=== PATIENT | female | born 1955 | race Caucasian/White ===

== ENCOUNTER 2019-05-21 12:28 | Inpatient (IN) | payer BC, MEDICAID, MEDICARE, OTHER ==
[~2019-05-21] VITALS: Ht 170.2 cm; Wt 79.8 kg
--- NOTE | 2019-05-21 12:38 | NUR ---
Dr Buenrostro at the bedside for MSE.
[2019-05-21] MEDS ORDERED: LORAZEPAM 2 MG/1 ML VIAL ONE (12:50)
[2019-05-21] MEDS ORDERED: LORAZEPAM 2 MG/1 ML VIAL IM ONE (13:00)
--- NOTE | 2019-05-21 13:10 | NUR ---
Pt remaines aggressive and continue to yell and scream. 1 to 1 infrastructure security architect at the bedside.
[2019-05-21 13:15] LABS: BASOPHILS # (AUTO) 0.1 K/uL (0.0-8.0); BASOPHILS % (AUTO) 1.3 % (0.0-2.0); EOSINOPHILS # (AUTO) 0.1 K/uL (0.0-0.7); EOSINOPHILS % (AUTO) 1.9 % (0.0-7.0); HEMATOCRIT 37.3 % (31.2-41.9); HEMOGLOBIN 12.4 g/dL (10.9-14.3); LYMPHOCYTES # (AUTO) 1.8 K/uL (20.0-40.0); LYMPHOCYTES % (AUTO) 29.8 % (20.5-51.5); MEAN CORPUSCULAR HEMOGLOBIN 28.2 uug (24.7-32.8); MEAN CORPUSCULAR HGB CONC 33 g/dL (32.3-35.6); MONOCYTES # (AUTO) 0.4 K/uL (2.0-10.0); MONOCYTES % (AUTO) 6.1 % (0.0-11.0); NEUTROPHILS # (AUTO) 3.6 K/uL (1.8-8.9); NEUTROPHILS % (AUTO) 60.9 % (38.5-71.5); PLATELET COUNT (AUTO) 213 K/uL (179-408); RED BLOOD CELL COUNT(AUTO) 4.39 MIL/uL (3.63-4.92)
[2019-05-21] MEDS ORDERED: OLANZAPINE 10 MG VIAL IM ONE ×4 (13:18→18:01)
[2019-05-21 13:21] LABS: CARBON DIOXIDE 28 mmol/L (21-32); CHLORIDE 107 mmol/L (98-107); CREATININE 0.8 mg/dL (0.6-1.3); GLUCOSE 101 mg/dL (74-106); UREA NITROGEN, BLOOD 13 mg/dL (7-18)
[2019-05-21 13:27] LABS: ALANINE AMINOTRANSFERASE 22 U/L (14-59); ALKALINE PHOSPHATASE 138 U/L (50-136); ASPARTATE AMINOTRANSFERASE 15 U/L (15-37); BILIRUBIN,DIRECT 0.1 mg/dL (0.0-0.2); BILIRUBIN,TOTAL 0.4 mg/dL (0.2-1.0); TOTAL PROTEIN, SERUM 7.3 g/dL (6.4-8.2)
--- NOTE | 2019-05-21 13:31 | NUR ---
Pt's sister shun phone #[phone].
--- NOTE | 2019-05-21 13:31 | NUR ---
Left message for Pt's sister shun. Awaiting call back.
[2019-05-21 13:34] LABS: ETHANOL < 3 MG/DL (0-0)
[2019-05-21 13:50] LABS: THYROID STIMULATING HORMONE 1.677 mIU/mL (0.358-3.740)
[2019-05-21] MEDS ORDERED: IV NORMAL SALINE 500 ML BAG IV ONE (14:15)
[2019-05-21] MEDS ORDERED: IV NORMAL SALINE 1000 ML BAG IV ONE (15:15)
[2019-05-21 15:21] LABS: *BILIRUBIN,URIN NEGATIVE (NEGATIVE); *BLOOD, URINE NEGATIVE (NEGATIVE); *CLARITY,URINE CLEAR (CLEAR); *COLOR,URINE YELLOW (YELLOW); *KETONES,URINE NEGATIVE (NEGATIVE); *UROBILINOGEN,URINE 0.2 E.U./dl (NORMAL); LEUKOCYTE ESTERASE ,URINE NEGATIVE (NEGATIVE); NITRITE, URINE NEGATIVE (NEGATIVE); PH,URINE 5.5 (5.0-8.0); UGLUCOSE NEGATIVE (NEGATIVE)
--- NOTE | 2019-05-21 15:22 | NUR ---
Pt resting in bed w/ both eyes closed, easily arousable. 1 to 1 sitter at the bedside.
[2019-05-21 15:32] LABS: *AMPHETAMINE, URINE NEGATIVE (NEGATIVE); *BARBITURATE, URINE NEGATIVE (NEGATIVE); *CANNABINOID, URINE NEGATIVE (NEGATIVE); *COCCAINE, URINE NEGATIVE (NEGATIVE); *OPIATE, URINE NEGATIVE (NEGATIVE); *PHENCYCLIDINE SCREEN,URINE NEGATIVE (NEGATIVE)
--- NOTE | 2019-05-21 17:25 | NUR ---
Dr Lott(social group worker) spoke to pt's sister.
--- NOTE | 2019-05-21 17:37 | NUR ---
Flight Paramedic Consultation: 4:50pm: This SW met with the patient, who was in her assigned ED room, with a sitter. Patient was seated in a chair, receptive to meeting with this SW. Patient was brought in by paramedics and [employer] after patient was at her optometrists office earlier today and she expressed SI. [employer] and paramedics were called, and [employer] placed patient on a 5150 hold for danger to self and patient was brought to this ED. Patient is a 63 year old female. According to Dr. Buenrostro, Patient presented in the ED with altered mental status. Patient was given Zyprexa and Ativan, per Dr. Buenrostro's orders. Patient is currently awake, presents calm and less altered, able to answer questions appropriately. Patient is hard of hearing. Patient states she lives with her mother, who patient takes care of. Patient expresses concern about her mother, since mother is currently home alone. Patient provided her sister Jasmyn's phone number [phone], and asked for SW to contact patient's sister, and not patient's mother. BOZENA Bowers had left patient's sister Jasmyn a voicemail message earlier, and this SW called Jasmyn again at 5:10pm. Patient is expressing the desire to leave, however patient was told that she is on a hold at this time for evaluation. SW informed the patient that SW is waiting for a call back from patient's sister. Patient expressed understanding.
--- NOTE | 2019-05-21 17:49 | NUR ---
5:20pm: Patient's sister Jasmyn called back [phone]. This SW and Dr. Buenrostro talked to Jasmyn, per patient's verbal authorization to talk to patient's sister Jasmyn. Jasmyn thanked Dr. Buenrostro and SW for information provided, and stated that she will be taking care of their mother while patient is in the hospital. Jasmyn was informed by Dr. Buenrostro that patient will be admitted to MHU. Jasmyn expressed understanding.
--- NOTE | 2019-05-21 17:56 | NUR ---
Pt becomes more aggitated and attempted to leave the room/hospital,code ross called.
[2019-05-21 18:45] VITALS: BP 139/75
--- NOTE | 2019-05-21 18:46 | NUR ---
Pt is less agitated and cooperative at this time. Pt transfered to [facility] via [place].
[2019-05-21 20:32] VITALS: BP 131/69
[2019-05-21] MEDS ORDERED: BLOOD SUGAR DIAGNOSTIC 1 EACH STRIP VI ONE (21:45)
[2019-05-21] MEDS ORDERED: MAG HYDROX/AL HYDROX/SIMETH 30 ML LIQUID UDC PO PRN (21:45)
[2019-05-21] MEDS ORDERED: MAGNESIUM HYDROXIDE 30 ML LIQUID UDC PO PRN (21:45)
[2019-05-21] MEDS: TEMAZEPAM 7.5 MG CAPSULE PO PRN (23:39)
--- NOTE | 2019-05-22 02:12 | NUR ---
Received to care, at 1900 (pt arrived on the unit at 1845), from the emergency room, on a 72 hour hold for danger to self. According to the hold and chart, she lives with her elderly mother, and is the primary caregiver for her. She went to her eye doctor appointment, and told them that she had suicidal thoughts, and she "can't go on with life anymore". She told the crisis team that she was thinking of different ways of committing suicide, and that she was depressed and couldn't live any longer, with her disabilities. Upon arrival on the unit, she was groggy and uncooperative with admission assessment, and interview, and immediately went to sleep. (she was medicated in the emergency room twice, for agitation) when she woke up, around 2300, she was confused and disorganized. she denied ever being suicidal, stating, "i'm not suicidal, i am congregation. we are very dramatic, when we talk" she totally downplayed the earlier incident. she was cooperative with some questions, but was still altered, asking the same questions, over and over. She seemed restless, and stated she wouldn't be able tro sleep in a strange room, so she was given PRN restoril for insomnia, at 2339. As of now, she remains asleep. no distress noted. will continue to monitor closely.
[2019-05-22 07:30] VITALS: BP 115/56
[2019-05-22 07:42] LABS: BILIRUBIN,TOTAL 0.3 mg/dL (0.2-1.0); CREATININE 0.7 mg/dL (0.6-1.3); POTASSIUM 3.4 mmol/L (3.5-5.1); TOTAL PROTEIN, SERUM 6.3 g/dL (6.4-8.2)
--- NOTE | 2019-05-22 10:53 | NUR ---
Social Work Note/Initial Discharge Plan: Patient currently resides with her mother at [address] [place] [address]; ([phone]). Per pt, she would want to go back home upon discharge. railway track worker will work with the patient and the MD regarding appropriate discharge planning. railway track worker will form a safe and proper discharge.
--- NOTE | 2019-05-22 10:59 | NUR ---
Social Work Note/Family Contact: metalworker contacted patients sister Jasmyn ([phone]) and discussed treatment plan and discharge plan. metalworker gathered collateral from patients sister.
--- NOTE | 2019-05-22 11:03 | NUR ---
Social Work Note/UR Note: joinery factory worker spoke to Rachel case planner ([phone] ext [phone]) who gave authorization number #[id number] and this telegraphic typewriter operator chief faxed ([phone]) patients clinicals.
[2019-05-22] MEDS ORDERED: POTASSIUM CHLORIDE 20 MEQ TAB.PRT.SR PO ONE (12:00)
[2019-05-22] MEDS: ACETAMINOPHEN 325 MG TABLET PO PRN (15:07)
--- NOTE | 2019-05-22 15:46 | NUR ---
Social Work Note: sewage disposal worker met with patients sister Jasmyn ([phone]) who stated that her sister has had previous falls at home. Per Jasmyn, she stated that she is unsure if her sister is able to take care of herself. Per Jasmyn, she stated that this patient lives with her 80 year old mother who is also unable to take care of patient. This caption writer will file a APS report agains self-neglect.
--- NOTE | 2019-05-22 15:48 | NUR ---
Social Work Note/APS Report: This va underwriter filed an APS report [facility] (Intake ID [id number]) due to self-neglect.
--- NOTE | 2019-05-22 15:52 | NUR ---
Gps/Narrow Fabric Calenderer-Patient's sister Leeroy, came in to visit, verbalized worried about her sister who is 5 years older than her, about her medications for neuropathy, and pain. , informed will have Financial Systems Administrator review medications from home.Offered tylenol for pain, claimed she will take it, it will not help her lower ext. pain. Safety reviewed emphasized, monitored needs, r/t to poor visions.. Patches of bruising to her arms and knees noted claimed from being handcuffed by the Police during her admssion.
[2019-05-22 16:00] VITALS: BP 107/56
--- NOTE | 2019-05-22 16:07 | NUR ---
Gps/Pearl Glue Drier- Dr Hansen was in to see patient informed of home meds. reviewed with Leeroy(sister), and K+ 3.4
--- NOTE | 2019-05-22 18:27 | NUR ---
Gps/Diesel Lube Tech- Leeroy(sister) came back to visit, brought clothes from home.,no string. Patient requested front wheel walker during ambulation, claimed she uses SPC at home. Had poor vision, and MARY'S IGLOO, wears hearing aid right ear.
[2019-05-22 20:56] VITALS: BP 146/63
[2019-05-22] MEDS: DOCUSATE SODIUM 100 MG CAPSULE PO SCH (21:03)
--- NOTE | 2019-05-23 05:44 | NUR ---
Patient first observed awake, alert and oriented x3 with a visitor (sister Jasmyn). Flat affect, low mood, pleasant on approach. Poor appearance appeared disheveled and unkempt. Cooperative and compliant. Patient is able to communicate needs to staff. Patient is able to perform ADL's, requires nursing interventions and motivation. Patient slept through night with no apparent distress. Will continue to monitor for safety as well as provide a therapeutic environment. Last observed lying in bed with eyes closed.
[2019-05-23 07:30] VITALS: BP 144/76
[2019-05-23] MEDS: SERTRALINE HCL 100 MG TABLET PO SCH (09:06)
[2019-05-23] MEDS: ARIPIPRAZOLE 5 MG TABLET PO SCH (09:06)
--- NOTE | 2019-05-23 10:04 | NUR ---
Gps/J2Ee Software Engineer- Ambulates around with front wheel walker, has poor vision,has eye glasses on, hearing aid to right ear, partial denture in the denture cup. Patient verbalized concerns regarding her Lyrica cap. claimed she's supposed to get ia 100 mg x 3 a day , informed MD was aware.
[2019-05-23 15:24] VITALS: BP 111/63
--- NOTE | 2019-05-23 16:39 | NUR ---
Gps/Director Digital Strategy- Patient's sister Leeroy in to visit
--- NOTE | 2019-05-23 18:15 | NUR ---
Gps/Manager- Leeroy(sister) came in to visit , belongings from the safe returned /given back to her sister.Patient Ruby gave the ok to give her stuff from the unit safe. Sister signed and witnessed
[2019-05-23] MEDS: NITROFURANTOIN/NITROFURAN MAC 100 MG CAPSULE PO SCH (20:25)
[2019-05-23] MEDS: DOCUSATE SODIUM 100 MG CAPSULE PO SCH (20:25)
[2019-05-23 20:52] VITALS: BP 118/71
[2019-05-23] MEDS: TEMAZEPAM 7.5 MG CAPSULE PO PRN (21:30)
--- NOTE | 2019-05-23 22:30 | NUR ---
received to care, lying in bed, isolative, but pleasant upon approach. compliant with medications and staff direction. continues to deny feeling suicidal, or depressed. PRN restoril given was given at 0, for insomnia. as of 2229, she appears to be asleep. no distress noted. will continue to monitor closely.
--- NOTE | 2019-05-24 06:00 | NUR ---
slept 7.25 hours, total. continues to sleep. no distress noted.
[2019-05-24 07:30] VITALS: BP 144/76
[2019-05-24] MEDS: NITROFURANTOIN/NITROFURAN MAC 100 MG CAPSULE PO SCH ×2 (08:26→20:18)
[2019-05-24] MEDS: ARIPIPRAZOLE 5 MG TABLET PO SCH (08:26)
[2019-05-24] MEDS: PREGABALIN 50 MG CAPSULE PO SCH ×3 (08:26→17:07)
[2019-05-24] MEDS: SERTRALINE HCL 100 MG TABLET PO SCH (08:26)
[2019-05-24 09:55] VITALS: BP 144/76
--- NOTE | 2019-05-24 13:26 | NUR ---
Gps/Supervisor Hide House- Leeroy(pt.sister) called was able to talked to the patient. Leeroy claimed she thinks Ruby(pt.) will not be able to go back home to her mother., rquesting to speak to Ana M (Dr Hansen) and Dr Tristan if possible , informed will relay the message.
[2019-05-24 15:54] VITALS: BP 115/65
[2019-05-24 20:18] VITALS: BP 125/78
[2019-05-24] MEDS: DOCUSATE SODIUM 100 MG CAPSULE PO SCH (20:18)
[2019-05-24] MEDS: TEMAZEPAM 7.5 MG CAPSULE PO PRN (21:13)
--- NOTE | 2019-05-24 22:30 | NUR ---
received to care, lying in bed, pleasant upon approach. compliant with medications and staff direction. continues to deny feeling suicidal, or depressed. PRN restoril given was given at 2112, for insomnia. as of 2229, she appears to be asleep. no distress noted. will continue to monitor closely.
--- NOTE | 2019-05-25 06:00 | NUR ---
slept 7.5 hours, total. continues to sleep. no distress noted.
[2019-05-25 07:30] VITALS: BP 157/78
[2019-05-25] MEDS: PREGABALIN 50 MG CAPSULE PO SCH ×3 (09:24→16:19)
[2019-05-25] MEDS: NITROFURANTOIN/NITROFURAN MAC 100 MG CAPSULE PO SCH ×2 (09:24→20:14)
[2019-05-25] MEDS: SERTRALINE HCL 100 MG TABLET PO SCH (09:24)
[2019-05-25] MEDS: ARIPIPRAZOLE 5 MG TABLET PO SCH (09:24)
--- NOTE | 2019-05-25 09:26 | NUR ---
Received patient asleep in her assigned bed. Bed is in low and locked position. Patient is alert and oriented x3. She is withdrawn to her room but cooperative and participates in assessment with this health underwriter. Patient is medication adherent, no adverse reaction noted. Patient denies SI/HI, denies AH/VH. She states that she is "depressed" due to having to coping with chronic medical issues for the last 3 years and being the caregiver for her mother, but denies being hopeless and helpless. Patient is able to make needs known to staff. She uses a FWW for ambulation, and uses a hearing aid in right ear. Patient reports good sleep, and she is able to tolerate food and fluids. Will continue to monitor.
--- NOTE | 2019-05-25 10:05 | NUR ---
Social Work Note/Individual Therapy: automobile body worker met with patient for brief counseling. automobile body worker assessed for patients level of suicidality. Patient denies SI and stated that she was never depressed. Patient is minimizing her depression and suicidal ideation thoughts. Patient currently denies SI. This lead technical writer provided mental health referrals to patient such as [facility] Crisis Line ( ), [place] Suicide Prevention Lifeline ( ) , [facility] Substance Abuse Helpline ( ). automobile body worker encouraged patient to contact either family, hotline, or a professional if patient were to have suicidal thoughts. This lead technical writer also encouraged patient to alert either this lead technical writer or the nursing staff.
--- NOTE | 2019-05-25 10:10 | NUR ---
Social Work Note/UR Note: ironworker helper shop faxed patients H & P psychiatric notes and progress notes to Skip casework manager ([phone]).
[2019-05-25 15:31] VITALS: BP 104/51
[2019-05-25 20:00] VITALS: BP 143/71
[2019-05-25] MEDS: DOCUSATE SODIUM 100 MG CAPSULE PO SCH (20:15)
--- NOTE | 2019-05-26 | NUR ---
RECEIVED PATIENT IN ACTIVITY ROOM. PLEASANT UPON APPROACH.MOOD WAS LOW AND SHE APPEARED ANXIOUS.DENIES SI/HI BUT SAID' WHEN YOU'RE DEALING WITH EYE AND EAR PROBLEMS WHO WOULD NOT BE WORRIED'.SHE IS MEDICATION COMPLIANT.BED IN LOCKED AND LOW POSITION.WILL CONTINUE WITH MONITORING.
--- NOTE | 2019-05-26 06:09 | NUR ---
SHE SLEPT FOR APPROX.6;30HRS.
[2019-05-26 07:54] VITALS: BP 126/76
--- NOTE | 2019-05-26 08:45 | NUR ---
Social Work Note/UR Note: bakery worker conveyor line faxed patients H & P psychiatric notes and progress notes to Skip patient case manager ([phone]).
[2019-05-26] MEDS: PREGABALIN 50 MG CAPSULE PO SCH ×3 (08:53→16:07)
[2019-05-26] MEDS: ARIPIPRAZOLE 5 MG TABLET PO SCH (08:53)
[2019-05-26] MEDS: NITROFURANTOIN/NITROFURAN MAC 100 MG CAPSULE PO SCH ×2 (08:53→20:15)
[2019-05-26] MEDS: SERTRALINE HCL 100 MG TABLET PO SCH (09:02)
[2019-05-26] MEDS: LORAZEPAM 1 MG TABLET PO PRN (11:22)
--- NOTE | 2019-05-26 11:23 | NUR ---
PT IS GETTING AGITATED AND SCREAMING AT THE NURSING STATION. VERY EMOTIONAL AND WANTED TO GO HOME TOMORROW. SPOKE TO HER SISTER ON THE PHONE AND HAVE THE INSTRUMENT OPERATOR EXPLAINED THE SITUATION. PT MEDICATED WITH ATIVAN 1MG PO AND TOOK IT WITHOUT ANY PROBLEM.
--- NOTE | 2019-05-26 13:30 | NUR ---
PT IS PARTICIPATING IN THE GROUP ACTIVITY AT THE ACTIVITY ROOM. FEELS MORE CALM.
[2019-05-26 15:34] VITALS: BP 133/65
[2019-05-26] MEDS: DOCUSATE SODIUM 100 MG CAPSULE PO SCH (20:15)
[2019-05-26 21:28] VITALS: BP 122/73
[2019-05-27 07:30] VITALS: BP 125/77
--- NOTE | 2019-05-27 07:52 | NUR ---
Received report from leaving rn. patient received. sleeping, easily arousable. AAOX2-3, [place] compliant and engaging in conversation. Will continue with care plan.
[2019-05-27] MEDS: NITROFURANTOIN/NITROFURAN MAC 100 MG CAPSULE PO SCH ×2 (08:34→20:09)
[2019-05-27] MEDS: ARIPIPRAZOLE 5 MG TABLET PO SCH (08:34)
[2019-05-27] MEDS: PREGABALIN 50 MG CAPSULE PO SCH ×3 (08:34→16:29)
[2019-05-27] MEDS: SERTRALINE HCL 100 MG TABLET PO SCH (08:35)
--- NOTE | 2019-05-27 08:59 | NUR ---
Social Work Note/UR Note: novelty worker faxed patients H & P psychiatric notes and progress notes to Skip case therapist ([phone]).
--- NOTE | 2019-05-27 10:05 | NUR ---
Social Work Note/Individual Therapy: site worker met with patient for brief counseling. site worker assessed for patients level of suicidality. Patient denies SI. This automotive service writer provided mental health referrals to patient such as [facility] Crisis Line ( ), [place] Suicide Prevention Lifeline ( ) , [facility] Substance Abuse Helpline ( ). site worker encouraged patient to contact either family, hotline, or a professional if patient were to have suicidal thoughts. This automotive service writer also encouraged patient to alert either this automotive service writer or the nursing staff.
--- NOTE | 2019-05-27 11:43 | NUR ---
Social Work Note/UR Note: test worker contacted Skip nurse case management ([phone]) and she stated that she is working on providing outpatient referrals for patient and will contact this mortgage or loan underwriter as soon as possible. Per Skip, she stated was able to arrange home health services through[address] ([phone]).
--- NOTE | 2019-05-27 12:06 | NUR ---
Social Work Note: This global technical writer received a phone all from [facility]) for patient ([phone]) but this global technical writer was out of the office. However, this global technical writer contacted back and voicemail was not set. This global technical writer was unable to reach [facility] from [facility].
--- NOTE | 2019-05-27 13:23 | NUR ---
Social Work Note/PC Hearing Notification: tail worker contacted patient's sister Jasmyn ([phone]) and notified patients probable cause of hearing today. This film writer left a voicemail.
[2019-05-27 16:00] VITALS: BP 136/76
--- NOTE | 2019-05-27 16:16 | NUR ---
Social Work Note/Family Contact: cone worker contacted patients sister Jasmyn ([phone]) and discussed discharge day. Per Jasmyn, she agreed.
[2019-05-27] MEDS: LORAZEPAM 1 MG TABLET PO PRN (16:29)
[2019-05-27] MEDS: ACETAMINOPHEN 325 MG TABLET PO PRN ×2 (16:29→22:35)
[2019-05-27] MEDS ORDERED: LORAZEPAM 2 MG/1 ML VIAL IM ONE (16:45)
[2019-05-27] MEDS ORDERED: chlorproMAZINE 50 MG/2 ML AMPUL IM ONE (16:45)
--- NOTE | 2019-05-27 16:58 | NUR ---
Patient with an episode of aggressiveness, and agitation, yelling out-loud at the nurses station demanding to have copies of her admitting diagnosis. Patient redirected and unable to contract. Medicated with ativan as ordered.
[2019-05-27 20:00] VITALS: BP 146/81
[2019-05-27] MEDS: DOCUSATE SODIUM 100 MG CAPSULE PO SCH (20:10)
--- NOTE | 2019-05-27 22:00 | NUR ---
received to care, pleasant upon approach. watching tv, by self. angry and labile, believes she does not need to be in the hospital. she was encouraged to verbalize this with the doctor, tomorrow. emotional support provided. denies SI, or desire to harm self. compliant with medications and staff direction. as of 2199, she continues to watch tv. currently eating a snack. no distress noted. will continue to monitor closely.
[2019-05-27] MEDS: TEMAZEPAM 7.5 MG CAPSULE PO PRN (22:35)
--- NOTE | 2019-05-27 22:35 | NUR ---
PRN restoril was given at this time, for insomnia. she then went to bed.
--- NOTE | 2019-05-27 23:10 | NUR ---
appears to be asleep. no distress noted.
--- NOTE | 2019-05-28 05:30 | NUR ---
slept well. continues to sleep. no distress noted.
[2019-05-28 07:30] VITALS: BP 152/65
[2019-05-28] MEDS: PREGABALIN 50 MG CAPSULE PO SCH ×3 (09:13→17:10)
[2019-05-28] MEDS: SERTRALINE HCL 100 MG TABLET PO SCH (09:13)
[2019-05-28] MEDS: ARIPIPRAZOLE 5 MG TABLET PO SCH (09:14)
--- NOTE | 2019-05-28 10:04 | NUR ---
Social Work Note/Firearms Report: Telephone Plant Power Operator completed and submitted a [employer] firearms report for 5250 grave disability certification. A copy of report has been placed in patient chart.
[2019-05-28] MEDS: ACETAMINOPHEN 325 MG TABLET PO PRN (10:51)
--- NOTE | 2019-05-28 15:02 | NUR ---
Social Work Note/UR Note: farmworker diversified crops spoke with Skip showcase maker ([phone]) who arranged patients psychiatrist appointment with Dr. Jimenez ([phone]) for August 17 at 3:30PM and professor of geology appointment with Dr. Rene ([phone]) and primary doctor will provide the psychotropic medication monitoring.
--- NOTE | 2019-05-28 15:02 | NUR ---
Social Work Note/UR Note: boom worker faxed patients H & P psychiatric notes and progress notes to Skip pillowcase maker ([phone]).
[2019-05-28 15:12] VITALS: BP 121/58
--- NOTE | 2019-05-28 15:34 | NUR ---
Social Work Note/Individual Therapy: mosaic worker met with patient for brief counseling to discuss patients presenting problem. mosaic worker assessed for patients level of suicidality. Patient denies SI and is excited that she will be discharged 05/29. This procedure writer encouraged patient to call her sister Jasmyn if she were in a crisis and this procedure writer provided mental health referrals to patient such as [facility] Crisis Line ( ), [place] Suicide Prevention Lifeline ( ) , [facility] Substance Abuse Helpline ( ). mosaic worker encouraged patient to contact either family, hotline, or a professional if patient were to have suicidal thoughts.
--- NOTE | 2019-05-28 17:45 | NUR ---
Gps/Supervisor Dry Paste- Patient aware of her discharge planning for tomorrow.Leeroy(sister) will be providing her transportation. Patient still verbalized the need to increasde her Lyrica dose to 100 mg. 3x a day as she takes at home
--- NOTE | 2019-05-28 17:47 | NUR ---
Gps/Ice Cream Vault Worker- Pleasant affect, interacting well with the staff, making her needs known . Patient wants to talk to Medical Doctor before she goes home tomorrow. regarding her medications.
[2019-05-28 20:00] VITALS: BP 120/65
[2019-05-28] MEDS: TEMAZEPAM 7.5 MG CAPSULE PO PRN (20:59)
[2019-05-28] MEDS: DOCUSATE SODIUM 100 MG CAPSULE PO SCH (20:59)
--- NOTE | 2019-05-28 23:00 | NUR ---
received to care, watching tv by self, pleasant upon approach. compliant with medications and staff direction. PRN restoril was given for insomnia, at 2058. as of 2299, she remains awake. no dsitress noted. will continue to monitor closely.
--- NOTE | 2019-05-29 06:00 | NUR ---
slept well. continues to sleep. no distress noted.
[2019-05-29] MEDS: ACETAMINOPHEN 325 MG TABLET PO PRN ×2 (06:45→12:16)
[2019-05-29 07:30] VITALS: BP 142/59
--- NOTE | 2019-05-29 08:04 | NUR ---
Social Work Discharge: Patient will be discharged home to [address], [place] [address]; ([phone]) Patients sister Jasmyn ([phone]) will warehouse order picker patient around 1PM. Patients sister Jasmyn, ([phone]) is aware and agreeable to patients discharge. Upon discharge, patient appear to be calm, cooperative and happy to be going home. Patient denies suicidal and homicidal ideation. Patient will follow up with Dr. Rene (semiconductor packages leak tester) on June 04 at 1:30PM at [address], [place] [address]; ([phone]) and patient will be following up with psychiatrist Dr.Tolwin Tinsley on August 17 at 3:30PM [address], [place] [address]; ([phone]). workers' compensation commissioner spoke to patients insurance counter caser Skip ([phone]. [phone]) who scheduled home health services through [address] [facility], [place]; ([phone]) and a nurse will be sent to evaluate patient. Patient was provided with outpatient mental health resources to [facility] Crisis Line , and the National Suicide Prevention Lifeline . Patient presented with euthymic mood and congruent affect.
[2019-05-29] MEDS: ARIPIPRAZOLE 5 MG TABLET PO SCH (08:38)
[2019-05-29] MEDS: SERTRALINE HCL 100 MG TABLET PO SCH (08:39)
[2019-05-29] MEDS: PREGABALIN 50 MG CAPSULE PO SCH ×2 (08:39→12:20)
--- NOTE | 2019-05-29 11:06 | NUR ---
Social Work Note: This law writer [facility] ([phone]) and stated that she will be doing a home visit.
--- NOTE | 2019-05-29 13:11 | NUR ---
Social Work Note/Substance Abuse Intervention: Patient was provided with a brief substance abuse intervention and referred to [facility] , and [facility] on 05/29/2019.
--- NOTE | 2019-05-29 13:45 | NUR ---
Gps/Practice Professional- Jasmyn (sister) in to pick up driver patient, reviewed prescriptions/medications, diet, skin care, safety, follow up with her primary Medical Doctor , and psychiatrist, both verbalized understanding. All belongings returned back to patient(SPC, hearing air to right ear, eye glasses, denture partial). The rest of patient's valuables was given back to her sister Jasmyn on 05/23/19 .Discharged to home via private car accompanied by her sister Jasmyn i pt. in good spirit, with no complaints or discomfort noted, denies S.I. no H.I.
== END 2019-05-29 13:50 | disposition home or self-care (01) | DRG 885 ==
LOC: ER 12:29 → GPS 18:34
PROVIDERS: ADMIT Psychiatry & Neurology Psychiatry; ATTEND Internal Medicine
DX: F25.0 Schizoaffective disorder, bipolar type (principal); B95.2 Enterococcus as the cause of diseases classified elsewhere; R45.851 Suicidal ideations; N39.0 Urinary tract infection, site not specified; J98.11 Atelectasis; E44.0 Moderate protein-calorie malnutrition; Z97.4 Presence of external hearing-aid; H91.90 Unspecified hearing loss, unspecified ear; G62.9 Polyneuropathy, unspecified; I44.7 Left bundle-branch block, unspecified; G89.29 Other chronic pain; M54.9 Dorsalgia, unspecified; E87.6 Hypokalemia; I70.0 Atherosclerosis of aorta; H54.7 Unspecified visual loss
CPT/HCPCS: 36415; 70030-TC; 71045; 80307; 84443; 85025; 87077; 87086; 93005; A4663; G0480; J2060; J2358; J3230; J7030

== ENCOUNTER 2023-03-31 17:05 | Emergency (ER) | payer OTHER ==
[~2023-03-31] VITALS: Ht 167.6 cm; Wt 72.6 kg
[~2023-03-31 17:05] MED LIST: CYMBALTA; ELAVIL; LYRICA
[2023-03-31 17:46] VITALS: O2SAT 96
== END 2023-03-31 17:46 ==
LOC: ER 17:13
DX: Z02.89 Encounter for other administrative examinations (principal); F20.0 Paranoid schizophrenia; Z79.899 Other long term (current) drug therapy; Z88.5 Allergy status to narcotic agent
CPT/HCPCS: A4606